=== PATIENT | female | born 2000 | race Caucasian/White ===

== ENCOUNTER 2023-09-19 14:22 | Emergency (ER) | payer OTHER ==
[~2023-09-19] VITALS: Ht 162.6 cm; Wt 61.5 kg
[2023-09-19 14:25] VITALS: BP 110/61; PULSE 81; TEMP 98.2; O2SAT 96
[2023-09-19 14:59] VITALS: RESP 14
[2023-09-19 15:44] LABS: BASOPHILS % (AUTO) 0.4 % (0-1); EOSINOPHILS % (AUTO) 0.5 % (0-6); HEMATOCRIT 38.3 % (35.0-45.0); LYMPHOCYTES # (AUTO) 1.7 X10'3 (1.1-4.8); LYMPHOCYTES % (AUTO) 22.2 % (21-51); MEAN CORPUSCULAR HEMOGLOBIN 29.8 PG (27.0-31.0); MEAN CORPUSCULAR VOLUME 87.7 FL (78-98); MEAN PLATELET VOLUME 7.6 FL (7.4-10.4); MONOCYTES # (AUTO) 0.6 X10'3 (0-0.9); MONOCYTES % (AUTO) 8.4 % (2-12); NEUTROPHILS # (AUTO) 5.2 X10'3 (1.8-7.7); NEUTROPHILS % (AUTO) 68.5 % (42-75); PLATELET COUNT 232 X10'3 (140-440); RED BLOOD COUNT 4.37 X10'6 (4.20-5.60); RED CELL DISTRIBUTION WIDTH 12.9 % (11.5-14.5); WHITE BLOOD COUNT 7.6 X10'3 (4.5-11.0)
[2023-09-19 16:06] LABS: ANION GAP 6 (8-16); BLOOD UREA NITROGEN 8 MG/DL (7-18); BUN/CREATININE RATIO 9.5 (10.0-20.0); CHLORIDE 105 MMOL/L (99-107); CREATININE 0.84 MG/DL (0.40-0.90); GLUCOSE 103 MG/DL (70-104); MAGNESIUM 1.8 MG/DL (1.5-2.4); POTASSIUM 3.7 MMOL/L (3.5-5.1); PRO BRAIN NATRIURETIC PEPTIDE 47 PG/ML (0-125); SODIUM 141 MMOL/L (135-145); TOTAL CARBON DIOXIDE 29.8 MMOL/L (24-32); eCRCL 91 ML/MIN; eGFR 86 ML/MIN
[2023-09-19 16:07] LABS: D-DIMER < 0.19 MG/L FEU (0-0.50)
== END 2023-09-19 16:19 | disposition home or self-care (01) ==
LOC: ER 14:23
DX: R07.89 Other chest pain (principal); R06.03 Acute respiratory distress
CPT/HCPCS: 36415; 80048; 83735; 83880; 85025; 85379; 93005; 99284